=== PATIENT | male | born 1945 | race Caucasian/White ===

== ENCOUNTER 2019-08-31 09:51 | Inpatient (IN) | payer OTHER ==
[~2019-08-31] VITALS: Ht 177.8 cm; Wt 127.0 kg
[2019-08-31 10:05] VITALS: Ht 177.8 cm; Wt 127.0 kg
[2019-08-31 11:45] LABS: BASOPHIL % 0.9 % (0-2); PLATELET COUNT 154 x10^3mcL (130-400); RED CELL DISTRIBUTION WIDTH 15.3 % (11.5-14.5)
[2019-08-31 12:45] LABS: ALKALINE PHOSPHATASE 79 U/L (46-116); ALT/SGPT 36 U/L (16-63); AST/SGOT 19 U/L (15-37); BILIRUBIN TOTAL 0.9 mg/dL (0.20-1.00); CALCIUM 9.2 mg/dL (8.5-10.1); CARBON DIOXIDE 29.5 mmol/L (21-32); CHLORIDE SERUM 108 mmol/L (98-107); CREATININE SERUM 1.4 mg/dL (0.7-1.3); GLUCOSE SERUM 144 mg/dL (74-106); HDL CHOLESTEROL 59 mg/dL (40-60); POTASSIUM SERUM 3.9 mmol/L (3.5-5.1); SODIUM SERUM 142 mmol/L (136-145); TOTAL PROTEIN, SERUM 7.1 g/dL (6.4-8.2)
[2019-08-31 12:53] LABS: ALBUMIN 3.3 g/dL (3.4-5.0); CHOLESTEROL 333 mg/dL (<200)
[2019-08-31] MEDS ORDERED: EDARBI40 M1 PO (13:25)
[2019-08-31] MEDS ORDERED: NEXIUM40 MG PO (13:25)
[2019-08-31] MEDS ORDERED: AMLODIPINE BES1 TAB PO (13:25)
[2019-08-31] MEDS ORDERED: LYRICA150 M1 PO (13:26)
[2019-08-31] MEDS ORDERED: FORTAMET1000 MG PO (13:26)
[2019-08-31] MEDS ORDERED: SIMVASTATIN80 M1 (13:26)
[2019-08-31] MEDS ORDERED: ALLEGRA ALLERG180 M1 PO (13:27)
[2019-08-31] MEDS ORDERED: MONTELUKAST SOD10 M1 PO (13:27)
[2019-08-31] MEDS ORDERED: PROAIR HFA8.5 GM INH (13:28)
[2019-08-31] MEDS ORDERED: PRO2 PO (13:28)
[2019-08-31] MEDS ORDERED: LASIX40 MG PO (13:29)
[2019-08-31] MEDS ORDERED: SYMBICORT1 AE3 IH (13:29)
[2019-08-31] MEDS ORDERED: SILDENAFIL CITR20 MG PO (13:29)
[2019-08-31] MEDS ORDERED: ALD25 PO (13:30)
[2019-08-31 14:50] LABS: FREE T4 0.98 ng/dL (0.76-1.46); T4(THYROXINE) 6.7 ug/dL (4.7-13.3)
[2019-08-31 14:53] LABS: T3 TOTAL 0.81 ng/mL
[2019-08-31 16:10] VITALS: BP 161/79
[2019-08-31 16:29] LABS: UA SPECIFIC GRAVITY 1.025 (1.005-1.035); microscopic required? YES; urine erythrocyte 3+ (NEGATIVE)
[2019-08-31 16:51] LABS: AMPHETAMINE QUAL UR NONE DETECTED (See below)
[2019-08-31 17:24] VITALS: BP 161/79
[2019-08-31] MEDS ORDERED: URO-MP CAPSULE1 EACH PO (17:44)
== END 2019-08-31 21:38 | disposition left against medical advice (07) | DRG 91 ==
LOC: ED 09:51 → EDBD 13:58 → DU 13:58
PROVIDERS: Emergency Medicine; ADMIT Internal Medicine
DX: G92 Toxic encephalopathy (principal); N17.0 Acute kidney failure with tubular necrosis; G45.9 Transient cerebral ischemic attack, unspecified; I50.32 Chronic diastolic (congestive) heart failure; E87.2 Acidosis; Z68.41 Body mass index [BMI] 40.0-44.9, adult; J44.1 Chronic obstructive pulmonary disease with (acute) exacerbation; I11.0 Hypertensive heart disease with heart failure; E11.40 Type 2 diabetes mellitus with diabetic neuropathy, unspecified; E78.00 Pure hypercholesterolemia, unspecified; G89.29 Other chronic pain; M54.9 Dorsalgia, unspecified; K21.9 Gastro-esophageal reflux disease without esophagitis; G47.33 Obstructive sleep apnea (adult) (pediatric); N30.80 Other cystitis without hematuria; E78.5 Hyperlipidemia, unspecified; Z53.29 Procedure and treatment not carried out because of patient's decision for other reasons; E11.65 Type 2 diabetes mellitus with hyperglycemia; E66.9 Obesity, unspecified; T39.395A Adverse effect of other nonsteroidal anti-inflammatory drugs [NSAID], initial encounter; Z87.891 Personal history of nicotine dependence; Z87.01 Personal history of pneumonia (recurrent); Y92.89 Other specified places as the place of occurrence of the external cause; Z79.899 Other long term (current) drug therapy
CPT/HCPCS: 36600; 82962; 83880; 84439; G0378; J0456; J0696; J1940; J7040; Q0092